=== PATIENT | male | born 1965 | race Caucasian/White ===

== ENCOUNTER 2024-05-02 15:42 | Emergency (ER) | payer MEDICARE, SELFPAY ==
[2024-05-02 15:56] VITALS: BP 167/96; PULSE 95; RESP 20; TEMP 36.6; O2SAT 98
--- NOTE | 2024-05-02 15:57 | ED.SKABFB ---
HPI - Skin/Abscess/Foreign Bdy General Chief complaint: Skin/Abscess/Foreign Body Stated complaint: Something wrong with skin Source: patient Mode of arrival: ambulatory Limitations: no limitations History of Present Illness HPI narrative: 58 y/o male with hx HIV presented for c/o itchy rash for about 3 months. Pt did change medications within the past several months, but is unsure when. Pt has been shaving body surface because it feels better to remove the skin. Has been taking Benadryl nightly prior to the rash and has not taken any additional doses. Denies lip, tongue, or throat swelling, shortness of breath or wheezing. Denies changes to soap, detergent, lotion. No one else in the house or any contacts with similar symptoms. Related Data Home Medications Medication Instructions Recorded Confirmed acyclovir 400 mg tablet 400 mg PO BID 05/02/24 05/02/24 aripiprazole 20 mg tablet 20 mg PO DAILY 05/02/24 05/02/24 bictegravir 50 mg-emtricitabine 1 tablet PO DAILY 05/02/24 05/02/24 200 mg-tenofovir alafenam 25 mg tablet (Biktarvy) bupropion HCl 300 mg 24 hr tablet, 300 mg PO DAILY 05/02/24 05/02/24 extended release clonidine HCl 0.1 mg tablet 0.1 mg PO TID 05/02/24 05/02/24 escitalopram oxalate 10 mg tablet 10 mg PO DAILY 05/02/24 05/02/24 famotidine 40 mg tablet 40 mg PO DAILY 05/02/24 05/02/24 finasteride 5 mg tablet 5 mg PO DAILY 05/02/24 05/02/24 fluticasone propionate 50 1 spray intranasal DAILY 05/02/24 05/02/24 mcg/actuation nasal spray,suspension gabapentin 100 mg capsule 100 mg PO TID 05/02/24 05/02/24 lorazepam 1 mg tablet 1 mg PO DAILY 05/02/24 05/02/24 naproxen 500 mg tablet 500 mg PO Q12H PRN Pain (Scale 05/02/24 05/02/24 Score 4-6) trazodone 100 mg tablet 100 mg PO DAILY 05/02/24 05/02/24 Allergies Allergy/AdvReac Type Severity Reaction Status Date / Time Penicillins Allergy Unknown Unknown Verified 05/02/24 16:15 Review of Systems Review of Systems: CONSTITUTIONAL: Denies body aches, fever, chills, or sweats. EYES: Denies visual changes, redness, or discharge. ENT: Denies rhinorrhea, congestion CARDIOVASCULAR: Denies chest pain, palpitations, or edema. RESPIRATORY: Denies cough or dyspnea. GASTROINTESTINAL: Denies abdominal pain, nausea, vomiting, or diarrhea. SKIN: reports rash MUSCULOSKELETAL: Denies back pain, joint pain, or myalgia. NEUROLOGIC: Denies headache, numbness, tingling, or weakness. [facility] Past Medical History Medical History (Updated 05/02/24 @ 16:28 by Kait Proctor APRN) Anxiety Depression HIV (human immunodeficiency virus infection) Comments At time of signature, I have reviewed and agree with nursing past medical, surgical, social and family history unless otherwise noted. Please see nursing chart for further information. There is no relevant family history pertinent to the presenting complaint Exam Narrative: GENERAL: Well-appearing EYES: conjunctivae clear, and EOMI. ENT: Mucous membranes moist. Oropharynx without edema, erythema or lesions. No soft palate or uvula edema, no tongue, lip edema or other mucosal involvement, NECK: Supple. No lymphadenopathy CHEST: Clear to auscultation. HEART: Regular rate and rhythm. SKIN: Warm, dry. Scattered erythematous papular rash in various sizes to face, torso and upper extremities. Minimal lesions to legs. No active drainage, though some are c/w pt scratching. No significant lesions to extensor surfaces, webbing. Sites are nontender. NEURO: Alert and oriented x3. no headache, photophobia or neck pain Course Course Emergency Course: Patient is aware of diagnosis, understands and agrees to treatment plan. Anticipatory guidance given. Patient agrees to follow-up as directed and is aware of reasons to seek care at the emergency department. Portions of this record may have been created with voice recognition software Level of Care: Express Care Visit Vital Signs Vital signs: Vital Si
== END 2024-05-02 16:25 | disposition home or self-care (01) ==
PROVIDERS: Emergency Provider Nurse Practitioner Family
DX: L30.9 Dermatitis, unspecified (principal); F41.9 Anxiety disorder, unspecified; F32.A Depression, unspecified; Z21 Asymptomatic human immunodeficiency virus [HIV] infection status
CPT/HCPCS: 99213; G0463